=== PATIENT | female | born 1970 | race Caucasian/White ===

== ENCOUNTER 2024-03-10 10:36 | Inpatient (IN) ==
[2024-03-10 11:53] LABS: BASOPHILS # (AUTO) 0.1 X10^3/uL (0.0-0.1); BASOPHILS % (AUTO) 1.2 % (0.2-1.0); EOSINOPHILS # (AUTO) 0.3 x10^3/uL (0.0-0.2); EOSINOPHILS % (AUTO) 3.9 % (0.9-2.9); HEMATOCRIT 41.7 % (36.0-47.0); HEMOGLOBIN 14.2 g/dL (12.0-16.0); LYMPHOCYTES # (AUTO) 2.3 X10^3/uL (1.3-2.9); LYMPHOCYTES % (AUTO) 32.3 % (21.0-51.0); MEAN CORPUSCULAR HEMOGLOBIN 31.2 pg (27.0-34.0); MEAN CORPUSCULAR HGB CONC 34.2 g/dL (33.0-35.0); MEAN CORPUSCULAR VOLUME 91.2 fL (80.0-100.0); MEAN PLATELET VOLUME 7.5 fL (7.4-11.0); MONOCYTES # (AUTO) 0.6 x10^3/uL (0.3-0.8); MONOCYTES % (AUTO) 8.8 % (0.0-13.0); NEUTROPHILS # (AUTO) 3.8 x10^3/uL (2.2-4.8); NEUTROPHILS % (AUTO) 53.8 % (42.0-75.0); PLATELET COUNT 369 X10^3/uL (150.0-450.0); RED BLOOD COUNT 4.57 X10^6/uL (3.5-5.4); RED CELL DISTRIBUTION WIDTH 13.8 % (11.6-16.5)
[2024-03-10 12:03] LABS: CHLORIDE 103 mmol/L (98-107); POTASSIUM 4.1 mmol/L (3.5-5.1); SODIUM 142 mmol/L (136-145)
[2024-03-10 12:04] VITALS: BMI 22.0
[2024-03-10] MEDS: ROCEPHIN VIAL 1 GRAM 1 G in NS 100 ML IV 100 ML IV SCH (12:10)
[2024-03-10 12:19] LABS: ALANINE AMINOTRANSFERASE 17 Units/L (12-78); ALBUMIN 3.3 g/dL (3.4-5.0); ALKALINE PHOSPHATASE 76 Units/L (46-116); ASPARTATE AMINO TRANSFERASE 15 Units/L (15-37); BLOOD UREA NITROGEN 18 mg/dL (7-18); CALCIUM 9.4 mg/dL (8.5-10.1); CARBON DIOXIDE 33.9 mmol/L (21-32); COR NA(FOR HYPERGLY) 143 mmol/L (136-145); CREATININE 0.77 mg/dL (0.55-1.02); GLUCOSE 121 mg/dL (65-99); TOTAL PROTEIN 7.9 g/dL (6.4-8.2); eGFR NON BLACK RACES > 60 (>60)
[2024-03-10 12:34] LABS: BILIRUBIN,URINE NEGATIVE (NEGATIVE); BLOOD/HEMOGLOBIN,URINE NEGATIVE (NEGATIVE); GLUCOSE, URINE NEGATIVE (NEGATIVE); KETONES,URINE NEGATIVE (NEGATIVE); LEUKOCYTE ESTERASE ,URINE 1+ (NEGATIVE); NITRITES,URINE NEGATIVE (NEGATIVE); PROTEIN,URINE 1+ (NEGATIVE); UROBILINOGEN,URINE NORMAL (NORMAL)
[2024-03-10 12:35] LABS: APPEARANCE,URINE SLIGHTLY HAZY (CLEAR); COLOR,URINE YELLOW (YELLOW)
[2024-03-10 12:44] LABS: BACTERIA,URINE NEGATIVE /HPF (NEGATIVE); RBC,URINE 0-2 /HPF (0-3); SQUAMOUS EPITHELIAL CELL,UR RARE /HPF (NEGATIVE)
[2024-03-10] MEDS: LIORESAL PO SCH (21:29)
[2024-03-10] MEDS: PULMICORT NEB TX 0.5 MG NEB SCH (21:29)
[2024-03-10] MEDS: LAMICTAL TAB 100 MG PO SCH (21:29)
[2024-03-10] MEDS: PATIENT'S HOME MEDICATION PO SCH ×2 (21:30→21:31)
[2024-03-10] MEDS: NYSTATIN POWDER TOP SCH (21:31)
--- NOTE | 2024-03-11 05:58 | RAD ---
EXAM:CHEST, 1 VIEWHISTORY:COUGH;COMPARISON:None available.FINDINGS:The trachea is midline. The cardiac silhouette is unremarkable. Suboptimal inspiratory effort. There is mild elevation of the right hemidiaphragm. The lungs are clear without focal infiltrate or effusion. The bony thorax is unremarkable. Spinal stabilization dori in the lower thoracic and lumbar region. There is an overlying neurostimulator with electrode extending into the left neck.IMPRESSION:Suboptimal inspiratory effort.No acute cardiopulmonary disease.THIS IS AN ELECTRONICALLY VERIFIED FINAL [id number]/2024 5:55 AM - Electronically signed by Esteban Kline MD
[2024-03-11 06:19] LABS: BASOPHILS % (AUTO) 0.5 % (0.2-1.0); EOSINOPHILS # (AUTO) 0.2 x10^3/uL (0.0-0.2); EOSINOPHILS % (AUTO) 2.4 % (0.9-2.9); HEMATOCRIT 43.5 % (36.0-47.0); LYMPHOCYTES # (AUTO) 2.4 X10^3/uL (1.3-2.9); LYMPHOCYTES % (AUTO) 25.9 % (21.0-51.0); MEAN CORPUSCULAR HEMOGLOBIN 31.3 pg (27.0-34.0); MEAN CORPUSCULAR HGB CONC 34.5 g/dL (33.0-35.0); MEAN CORPUSCULAR VOLUME 90.7 fL (80.0-100.0); MEAN PLATELET VOLUME 7.8 fL (7.4-11.0); MONOCYTES # (AUTO) 0.7 x10^3/uL (0.3-0.8); MONOCYTES % (AUTO) 7.1 % (0.0-13.0); NEUTROPHILS # (AUTO) 5.9 x10^3/uL (2.2-4.8); NEUTROPHILS % (AUTO) 64.1 % (42.0-75.0); PLATELET COUNT 436 X10^3/uL (150.0-450.0); RED BLOOD COUNT 4.79 X10^6/uL (3.5-5.4); RED CELL DISTRIBUTION WIDTH 13.9 % (11.6-16.5); WHITE BLOOD COUNT 9.2 X10^3/uL (3.6-10.0)
[2024-03-11 06:40] LABS: ALANINE AMINOTRANSFERASE 16 Units/L (12-78); ALBUMIN 3.7 g/dL (3.4-5.0); ALKALINE PHOSPHATASE 85 Units/L (46-116); ASPARTATE AMINO TRANSFERASE 13 Units/L (15-37); BLOOD UREA NITROGEN 20 mg/dL (7-18); CALCIUM 10.1 mg/dL (8.5-10.1); CARBON DIOXIDE 28.2 mmol/L (21-32); CHLORIDE 101 mmol/L (98-107); COR NA(FOR HYPERGLY) 142 mmol/L (136-145); CREATININE 0.75 mg/dL (0.55-1.02); GLUCOSE 141 mg/dL (65-99); SODIUM 141 mmol/L (136-145); TOTAL PROTEIN 8.7 g/dL (6.4-8.2); eGFR NON BLACK RACES > 60 (>60)
--- NOTE | 2024-03-11 07:07 | DR.H&P ---
H&P History & Physical for Day of: H&P Date: 03/10/24 Chief Complaint Chief Complaint: Cough, malodorous urine History of Present Illness History of Present Illness: Patient directed Mitt from PCP due to concentrated urine, foul-smelling urine, and worsening cough at home. Patient with poor p.o. intake. Family concerned about return of UTI versus pneumonia. Patient requires family and nursing for all ADLs due to her cerebral palsy and seizure disorder. Follows with neurology and PCP. Recurrent admissions for aspiration pneumonia, community-acquired pneumonia, and recurrent UTIs. Intake vitals with hypertension. CBC benign. BMP with hyperglycemia. UA with positive leuk esterase. Chest x-ray report pending. Patient doing well since admission. Other than hypertension there are no new complaints. Cough still present. ROS: 12 point ROS reviewed with family and nursing. Family not able to contribute due to mental status. PE: Abnormally developed female in no acute distress. Head NCAT. Heart regular rate and rhythm. Lungs diminished bilateral bases with crackles. Air movement otherwise appropriate. Belly is soft and nontender with bowel sounds present. Great deal of atrophy of the lower extremities. Contractures of the upper extremities. Past Surgical History Surgical History: Cholecystectomy Family History Family Medical History: Diabetes Mellitus, Cancer, Heart Failure and Hypertensi on Social History Does patient currently use any type of tobacco product: No Type of Tobacco Use: None Does any household member use tobacco: No Alcohol Use: None Drug Use: None Medications Home Medications: Home Medications Medication Instructions Recorded Confirmed Type baclofen 10 mg tablet 10 mg PO BID 10/17/23 03/10/24 History budesonide 0.5 mg/2 mL suspension 0.5 mg inhalation BID 10/17/23 03/10/24 History for nebulization cannabidiol 100 mg/mL oral 100 mg PO BID 10/17/23 03/10/24 History solution (Epidiolex) carbamazepine 200 mg tablet 400 mg PO BID 10/17/23 03/10/24 History lacosamide 150 mg tablet 150 mg PO BID 10/17/23 03/10/24 History lamotrigine 200 mg tablet 200 mg PO BID 10/17/23 03/10/24 History loratadine 10 mg tablet 10 mg PO QDAY 03/10/24 03/10/24 History Allergies Allergies Allergy/AdvReac Type Severity Reaction Status Date / Time No Known Allergies Allergy Verified 10/17/23 14:39 Labs 03/11/24 05:30 03/11/24 05:30 Labs: Laboratory WBC 7.0 X10^3/uL (3.6-10.0) 03/10/24 11:43 RBC 4.57 X10^6/uL (3.5-5.4) 03/10/24 11:43 Hgb 14.2 g/dL (12.0-16.0) 03/10/24 11:43 Hct 41.7 % (36.0-47.0) 03/10/24 11:43 MCV 91.2 fL (80.0-100.0) 03/10/24 11:43 MCH 31.2 pg (27.0-34.0) 03/10/24 11:43 MCHC 34.2 g/dL (33.0-35.0) 03/10/24 11:43 RDW 13.8 % (11.6-16.5) 03/10/24 11:43 Plt Count 369 X10^3/uL (150.0-450.0) 03/10/24 11:43 MPV 7.5 fL (7.4-11.0) 03/10/24 11:43 Neut % (Auto) 53.8 % (42.0-75.0) 03/10/24 11:43 Lymph % (Auto) 32.3 % (21.0-51.0) 03/10/24 11:43 [place] % (Auto) 8.8 % (0.0-13.0) 03/10/24 11:43 Eos % (Auto) 3.9 % (0.9-2.9) H 03/10/24 11:43 Baso % (Auto) 1.2 % (0.2-1.0) H 03/10/24 11:43 Neut # (Auto) 3.8 x10^3/uL (2.2-4.8) 03/10/24 11:43 Lymph # (Auto) 2.3 X10^3/uL (1.3-2.9) 03/10/24 11:43 [place] # (Auto) 0.6 x10^3/uL (0.3-0.8) 03/10/24 11:43 Eos # (Auto) 0.3 x10^3/uL (0.0-0.2) H 03/10/24 11:43 Baso # (Auto) 0.1 X10^3/uL (0.0-0.1) 03/10/24 11:43 Absolute Nucleated RBC 0.2 /100WBC 03/10/24 11:43 Sodium 142 mmol/L (136-145) 03/10/24 11:43 Corrected Sodium 143 mmol/L (136-145) 03/10/24 11:43 Potassium 4.1 mmol/L (3.5-5.1) 03/10/24 11:43 Chloride 103 mmol/L (98-107) 03/10/24 11:43 Carbon Dioxide 33.9 mmol/L (21-32) H 03/10/24 11:43 BUN 18 mg/dL (7-18) 03/10/24 11:43 Creatinine 0.77 mg/dL (0.55-1.02) 03/10/24 11:43 Est GFR (MDRD) Af Amer > 60 (>60) 03/10/24 11:43 Est GFR (MDRD) Non-Af > 60 (>60) 03/10/24 11:43 Glucose 121 mg/dL (65-99) H 03/10/24 11:43 Calcium 9.4 mg/dL (8.5-10.1) 03/10/24 11:43 Corrected Calcium 10.0 mg/dL (8.5-10.1) 03/10/24 11:43 Total Bilirubin 0.20 mg/dL (0.2-1.0) 03/10/24 11:43 AST 15 Units/L (15-37) 03/10/24 11:43 ALT 17 Units/L (12-78) 03/10/24 11:43 Alkaline Phosphatase 76 Units/L (46-116) 03/10/24 11:43 Total Protein 7.9 g/dL (6.4-8.2) 03/10/24 11:43 Albumin 3.3 g/dL (3.4-5.0) L 03/10/24 11:43 Globulin 4.6 g/dL (2.5-4.5) H 03/10/24 11:43 Albumin/Globulin Ratio 0.7 Ratio (1.1-2.1) L 03/10/24 11:43 Specimen Type Catherized urine 03/10/24 12:20 Urine Color Yellow (YELLOW) 03/10/24 12:20 Urine Appearance Slightly hazy (CLEAR) 03/10/24 12:20 Urine pH 7.0 (5.0 - 8.0) 03/10/24 12:20 Ur Specific [place] 1.010 (1.000-1.030) 03/10/24 12:20 Urine Protein 1+ (NEGATIVE) 03/10/24 12:20 Urine Glucose (UA) Negative (NEGATIVE) 03/10/24 12:20 Urine Ketones Negative (NEGATIVE) 03/10/24 12:20 Urine Blood Negative (NEGATIVE) 03/10/24 12:20 Urine Nitrite Negative (NEGATIVE) 03/10/24 12:20 Urine Bilirubin Negative (NEGATIVE) 03/10/24 12:20 Urine Urobilinogen Normal (NORMAL) 03/10/24 12:20 Ur Leukocyte Esterase 1+ (NEGATIVE) 03/10/24 12:20 Urine RBC 0-2 /HPF (0-3) 03/10/24 12:20 Urine WBC 0-2 /HPF (0-5) 03/10/24 12:20 Ur Squamous Epith Cells Rare /HPF (NEGATIVE) 03/10/24 12:20 Amorphous Sediment Trace /HPF (NEGATIVE) 03/10/24 12:20 Urine Bacteria Negative /HPF (NEGATIVE) 03/10/24 12:20 Ur Culture Indicated? No/not indicated 03/10/24 12:20 Physical Exam Vital Signs: Vital Signs Temperature 97.7 F Temperature 97.4 F Pulse Rate [Right Brachial] 69 Pulse Rate [Right Brachial] 76 Respiratory Rate 20 Respiratory Rate 22 Blood Pressure [Right Arm] 158/98 Blood Pressure [Right Arm] 174/91 O2 Sat by Pulse Oximetry 96 O2 Sat by Pulse Oximetry 95 Assessment/Plan (1) Recurrent UTI: Narrative Support Text: IV Rocephin. Urine appears mild. Wait on culture results. Status: Acute (2) Chronic pulmonary aspiration: Qualifiers: Encounter type: subsequent encounter Qualified Code(s): T17.908D - Unspecified foreign body in respiratory tract, part unspecified causing other injury, subsequent encounter Narrative Support Text: per ST recs. Keep HOB elevated. Status: Chronic (3) Seizure disorder: Narrative Support Text: Continue home meds. Status: Chronic (4) Functional quadriplegia: Narrative Support Text: JACK/LTC placement at discharge. Status: Chronic
[2024-03-11] MEDS: CLARITIN PO SCH (09:17)
[2024-03-11] MEDS: NORVASC TAB 10 MG PO SCH (09:18)
[2024-03-11] MEDS: CATAPRES-TTS-1 TD SCH (13:36)
--- NOTE | 2024-03-11 16:13 | NOTE.SOAP ---
Soap Note Note for Day of Date of Exam: 03/11/24 Subjective Data Subjective Data: Patient seen with nurse this morning. No overnight events other than elevated blood pressure. Heart rate has started to go up. He did have a respiratory rate of 22 overnight. UA with LE positive. Cultures not ordered. Objective Data Objective Data: Thin female in no acute distress. EOMI. Head NCAT. Contractures of the upper extremities appear stable and chronic. Heart regular rate and rhythm. Lungs with diminished respiratory effort but clear today. Bowel sounds are present. Belly soft and nontender. Assessment Assessment: 1. Recurrent UTI- continue Rocephin. Culture pending. Skin care. Has had Tachypnea with Tachycardia this admission (meets SIRS, may be septic but stable). Need to get blood cultures and urine culture. 2. Tinea cruris- Nystatin topical. 3. Benign Ess HTN- start Norvasc daily. HTN protocol prn. Started clonidine patch due to patient not taking oral intake. 4. Hyperglycemia- A1c in AM.
[2024-03-12 04:40] LABS: BASOPHILS # (AUTO) 0.1 X10^3/uL (0.0-0.1); BASOPHILS % (AUTO) 0.7 % (0.2-1.0); EOSINOPHILS # (AUTO) 0.1 x10^3/uL (0.0-0.2); EOSINOPHILS % (AUTO) 1.3 % (0.9-2.9); HEMATOCRIT 42.6 % (36.0-47.0); HEMOGLOBIN 14.5 g/dL (12.0-16.0); LYMPHOCYTES # (AUTO) 2.5 X10^3/uL (1.3-2.9); LYMPHOCYTES % (AUTO) 24.5 % (21.0-51.0); MEAN CORPUSCULAR HEMOGLOBIN 30.8 pg (27.0-34.0); MEAN CORPUSCULAR VOLUME 90.7 fL (80.0-100.0); MEAN PLATELET VOLUME 7.7 fL (7.4-11.0); MONOCYTES # (AUTO) 0.8 x10^3/uL (0.3-0.8); MONOCYTES % (AUTO) 7.5 % (0.0-13.0); NEUTROPHILS # (AUTO) 6.6 x10^3/uL (2.2-4.8); PLATELET COUNT 418 X10^3/uL (150.0-450.0); RED BLOOD COUNT 4.69 X10^6/uL (3.5-5.4); WHITE BLOOD COUNT 10.1 X10^3/uL (3.6-10.0)
[2024-03-12 04:49] LABS: ALANINE AMINOTRANSFERASE 22 Units/L (12-78); ALBUMIN 3.7 g/dL (3.4-5.0); ALKALINE PHOSPHATASE 81 Units/L (46-116); ASPARTATE AMINO TRANSFERASE 18 Units/L (15-37); BLOOD UREA NITROGEN 16 mg/dL (7-18); CALCIUM 9.8 mg/dL (8.5-10.1); CARBON DIOXIDE 30.4 mmol/L (21-32); CHLORIDE 105 mmol/L (98-107); CREATININE 0.72 mg/dL (0.55-1.02); GLUCOSE 99 mg/dL (65-99); POTASSIUM 3.7 mmol/L (3.5-5.1); SODIUM 145 mmol/L (136-145); TOTAL PROTEIN 8.3 g/dL (6.4-8.2); eGFR NON BLACK RACES > 60 (>60)
[2024-03-12] MEDS ORDERED: CONSULT PHARMACY - POTASSIUM & MAGNESIUM XX SCH (07:00)
[2024-03-12] MEDS: K-DUR TAB 20 MEQ PO SCH (09:30)
--- NOTE | 2024-03-12 23:25 | EKG ---
Test Reason : hypertension protocol Blood Pressure : */* mmHG Vent. Rate : 121 BPM Atrial Rate : 121 BPM P-R Int : 122 ms QRS Dur : 84 ms QT Int : 314 ms P-R-T Axes : 31 34 52 degrees QTc Int : 445 ms Sinus tachycardia Minimal voltage criteria for LVH, may be normal variant ( Potter product ) Nonspecific ST and T wave abnormality Abnormal ECG No previous ECGs available Confirmed by Vinicius Hernandez ([id number]) on 03/15/2024 10:44:42 AM Referred By: Confirmed By: Vinicius Hernandez
[2024-03-12] MEDS: APRESOLINE INJ 20 MG VIAL IVP ONE (23:30)
[2024-03-13 04:40] LABS: BASOPHILS # (AUTO) 0.1 X10^3/uL (0.0-0.1); BASOPHILS % (AUTO) 0.9 % (0.2-1.0); EOSINOPHILS # (AUTO) 0.2 x10^3/uL (0.0-0.2); EOSINOPHILS % (AUTO) 2.1 % (0.9-2.9); HEMATOCRIT 41.5 % (36.0-47.0); LYMPHOCYTES # (AUTO) 2.6 X10^3/uL (1.3-2.9); LYMPHOCYTES % (AUTO) 26.2 % (21.0-51.0); MEAN CORPUSCULAR HEMOGLOBIN 30.7 pg (27.0-34.0); MEAN CORPUSCULAR HGB CONC 33.8 g/dL (33.0-35.0); MEAN CORPUSCULAR VOLUME 90.9 fL (80.0-100.0); MEAN PLATELET VOLUME 7.6 fL (7.4-11.0); MONOCYTES # (AUTO) 0.9 x10^3/uL (0.3-0.8); MONOCYTES % (AUTO) 9.2 % (0.0-13.0); NEUTROPHILS # (AUTO) 6.1 x10^3/uL (2.2-4.8); NEUTROPHILS % (AUTO) 61.6 % (42.0-75.0); PLATELET COUNT 450 X10^3/uL (150.0-450.0); RED BLOOD COUNT 4.56 X10^6/uL (3.5-5.4); RED CELL DISTRIBUTION WIDTH 14.1 % (11.6-16.5); WHITE BLOOD COUNT 9.9 X10^3/uL (3.6-10.0)
[2024-03-13 04:57] LABS: ALANINE AMINOTRANSFERASE 26 Units/L (12-78); ALBUMIN 3.6 g/dL (3.4-5.0); ALKALINE PHOSPHATASE 76 Units/L (46-116); ASPARTATE AMINO TRANSFERASE 17 Units/L (15-37); BLOOD UREA NITROGEN 26 mg/dL (7-18); CARBON DIOXIDE 31.2 mmol/L (21-32); CHLORIDE 105 mmol/L (98-107); CREATININE 0.85 mg/dL (0.55-1.02); GLUCOSE 80 mg/dL (65-99); SODIUM 145 mmol/L (136-145); TOTAL PROTEIN 8.1 g/dL (6.4-8.2); eGFR NON BLACK RACES > 60 (>60)
[2024-03-13 08:24] VITALS: BP 110/76; RESP 18; TEMP 97.3
[2024-03-13 09:09] VITALS: PULSE 75; O2SAT 95
--- NOTE | 2024-03-13 09:25 | NOTE.SOAP ---
Soap Note Note for Day of Date of Exam: 03/12/24 Subjective Data Subjective Data: No acute events. Did well overnight. Plans to discharge tomorrow to [facility]. A1c 5.2%. Objective Data Objective Data: Thin female in no acute distress, watching TV. EOMI. Head NCAT. Contractures of the upper extremities appear stable and chronic. Heart regular rate and rhythm. Lungs with diminished respiratory effort but clear today. Bowel sounds are present. Belly soft and nontender. Assessment Assessment: 1. Recurrent UTI- continue Rocephin. Culture pending. Skin care. Has had Tachypnea with Tachycardia this admission (meets SIRS, may be septic but stable). Need to get blood cultures and urine culture. 2. Tinea cruris- continue nystatin topical. 3. Benign Ess HTN- continue Norvasc & clonidine patch. Much better. 4. Hyperglycemia- A1c appropriate.
--- NOTE | 2024-03-13 09:30 | PCM.DCPLAN ---
DISCHARGE SUMMARY Admission Date Date of Admission: 03/10/24 Discharge Date Discharge Date: 03/13/24 Admission Diagnoses (1) Recurrent UTI: Status: Acute (2) Chronic pulmonary aspiration: Status: Chronic (3) Seizure disorder: Status: Chronic (4) Functional quadriplegia: Status: Chronic (5) Essential (primary) hypertension: Status: Acute Discharge Diagnoses Discharge Diagnosis: Same Discharge Medications Discharge Medications: Home Medication List loratadine 10 mg tablet 10 mg PO QDAY 03/10/24 [History] Prescriptions: Hospital Course Vital Signs: Vital Signs Temperature 97.3 F Temperature 98.4 F Temperature 98.0 F Pulse Rate [Left] 70 Pulse Rate [Left] 94 Pulse Rate [Right Brachial] 94 Pulse Rate 75 Respiratory Rate 18 Respiratory Rate 20 Respiratory Rate 20 Blood Pressure [Left Thigh] 110/76 Blood Pressure [Left Thigh] 121/71 Blood Pressure [Right Arm] 121/71 Blood Pressure [Right Arm] 132/66 Blood Pressure [Right Arm] 118/59 O2 Sat by Pulse Oximetry 95 O2 Sat by Pulse Oximetry 94 O2 Sat by Pulse Oximetry 92 O2 Sat by Pulse Oximetry 92 Latest Lab Results: Laboratory Last Values WBC 9.9 X10^3/uL (3.6-10.0) 03/13/24 04:17 RBC 4.56 X10^6/uL (3.5-5.4) 03/13/24 04:17 Hgb 14.0 g/dL (12.0-16.0) 03/13/24 04:17 Hct 41.5 % (36.0-47.0) 03/13/24 04:17 MCV 90.9 fL (80.0-100.0) 03/13/24 04:17 MCH 30.7 pg (27.0-34.0) 03/13/24 04:17 MCHC 33.8 g/dL (33.0-35.0) 03/13/24 04:17 RDW 14.1 % (11.6-16.5) 03/13/24 04:17 Plt Count 450 X10^3/uL (150.0-450.0) 03/13/24 04:17 MPV 7.6 fL (7.4-11.0) 03/13/24 04:17 Neut % (Auto) 61.6 % (42.0-75.0) 03/13/24 04:17 Lymph % (Auto) 26.2 % (21.0-51.0) 03/13/24 04:17 [place] % (Auto) 9.2 % (0.0-13.0) 03/13/24 04:17 Eos % (Auto) 2.1 % (0.9-2.9) 03/13/24 04:17 Baso % (Auto) 0.9 % (0.2-1.0) 03/13/24 04:17 Neut # (Auto) 6.1 x10^3/uL (2.2-4.8) H 03/13/24 04:17 Lymph # (Auto) 2.6 X10^3/uL (1.3-2.9) 03/13/24 04:17 [place] # (Auto) 0.9 x10^3/uL (0.3-0.8) H 03/13/24 04:17 Eos # (Auto) 0.2 x10^3/uL (0.0-0.2) 03/13/24 04:17 Baso # (Auto) 0.1 X10^3/uL (0.0-0.1) 03/13/24 04:17 Absolute Nucleated RBC 0.0 /100WBC 03/13/24 04:17 Sodium 145 mmol/L (136-145) 03/13/24 04:17 Corrected Sodium TNP 03/13/24 04:17 Potassium 4.0 mmol/L (3.5-5.1) 03/13/24 04:17 Chloride 105 mmol/L (98-107) 03/13/24 04:17 Carbon Dioxide 31.2 mmol/L (21-32) 03/13/24 04:17 BUN 26 mg/dL (7-18) H 03/13/24 04:17 Creatinine 0.85 mg/dL (0.55-1.02) 03/13/24 04:17 Est GFR (MDRD) Af Amer > 60 (>60) 03/13/24 04:17 Est GFR (MDRD) Non-Af > 60 (>60) 03/13/24 04:17 Glucose 80 mg/dL (65-99) 03/13/24 04:17 Hemoglobin A1c 5.2 % 03/11/24 05:30 Calcium 10.0 mg/dL (8.5-10.1) 03/13/24 04:17 Corrected Calcium TNP 03/13/24 04:17 Total Bilirubin 0.20 mg/dL (0.2-1.0) 03/13/24 04:17 AST 17 Units/L (15-37) 03/13/24 04:17 ALT 26 Units/L (12-78) 03/13/24 04:17 Alkaline Phosphatase 76 Units/L (46-116) 03/13/24 04:17 Total Protein 8.1 g/dL (6.4-8.2) 03/13/24 04:17 Albumin 3.6 g/dL (3.4-5.0) 03/13/24 04:17 Globulin 4.5 g/dL (2.5-4.5) 03/13/24 04:17 Albumin/Globulin Ratio 0.8 Ratio (1.1-2.1) L 03/13/24 04:17 Specimen Type Catherized urine 03/10/24 12:20 Urine Color Yellow (YELLOW) 03/10/24 12:20 Urine Appearance Slightly hazy (CLEAR) 03/10/24 12:20 Urine pH 7.0 (5.0 - 8.0) 03/10/24 12:20 Ur Specific [place] 1.010 (1.000-1.030) 03/10/24 12:20 Urine Protein 1+ (NEGATIVE) 03/10/24 12:20 Urine Glucose (UA) Negative (NEGATIVE) 03/10/24 12:20 Urine Ketones Negative (NEGATIVE) 03/10/24 12:20 Urine Blood Negative (NEGATIVE) 03/10/24 12:20 Urine Nitrite Negative (NEGATIVE) 03/10/24 12:20 Urine Bilirubin Negative (NEGATIVE) 03/10/24 12:20 Urine Urobilinogen Normal (NORMAL) 03/10/24 12:20 Ur Leukocyte Esterase 1+ (NEGATIVE) 03/10/24 12:20 Urine RBC 0-2 /HPF (0-3) 03/10/24 12:20 Urine WBC 0-2 /HPF (0-5) 03/10/24 12:20 Ur Squamous Epith Cells Rare /HPF (NEGATIVE) 03/10/24 12:20 Amorphous Sediment Trace /HPF (NEGATIVE) 03/10/24 12:20 Urine Bacteria Negative /HPF (NEGATIVE) 03/10/24 12:20 Ur Culture Indicated? No/not indicated 03/10/24 12:20 Hospital Course: Pt admitted from home due to concerns for PNA vs UTI with worsening PO intake and lethargy. Pt responded well to IV Rocephin. No cultures obtained, but vitals improved with IVFs, IV abx, and topical clonidine. Pt to be discharged on 5 more days of PO Omnicef and continuation of clonidine patch to [facility] for rehab and LTC. PT discharging in improved, stable condition.
== END 2024-03-13 10:25 | DRG 689 ==
LOC: MED/SURG → OBSVTOIN 10:45
PROVIDERS: ADMIT Family Medicine; ATTEND Family Medicine
DX: R00.0 Tachycardia, unspecified; I10 Essential (primary) hypertension; Z87.440 Personal history of urinary (tract) infections; N39.0 Urinary tract infection, site not specified; B35.6 Tinea cruris; Z96.82 Presence of neurostimulator; G40.909 Epilepsy, unspecified, not intractable, without status epilepticus; R53.2 Functional quadriplegia; R05.8 Other specified cough; R73.09 Other abnormal glucose; T17.908D Unspecified foreign body in respiratory tract, part unspecified causing other injury, subsequent encounter; R53.1 Weakness